=== PATIENT | male | born 1940 | race African-American/Black ===

== ENCOUNTER → 2019-01-22 | Outpatient (CLI) | payer MEDICARE, MEDICAID ==
[~2019-01-22] MED LIST: IOHEXOL-300 100 ML BOTTLE ONE
== END | disposition home or self-care (01) ==
LOC: NM 07:53
PROVIDERS: ATTEND Urology
DX: N13.39 Other hydronephrosis (principal); M51.26 Other intervertebral disc displacement, lumbar region; M43.17 Spondylolisthesis, lumbosacral region; N32.89 Other specified disorders of bladder; C61 Malignant neoplasm of prostate
CPT/HCPCS: 71046; 72194; 78306; A9503; Q9967